=== PATIENT | female | born 1990 | race Hispanic/Latino ===

== ENCOUNTER 2019-04-24 15:47 | Outpatient (CLI) | payer OTHER ==
--- NOTE | 2019-04-24 16:05 | RAD ---
XR Abdomen 1 View/KUB History: Generalized abdominal pain Comparison: None. 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 Evaluation for free air is limited without an upright exam. No dilated air-filled loops of large or small bowel. Phleboliths in the left hemipelvis. No abnormal calcifications project over the renal shadows. Impression: 1. No acute abnormality within the pelvis. 2. Left IIb lumbosacral transitional vertebra.
== END 2019-04-24 15:48 | disposition home or self-care (01) ==
LOC: NAV RAD 15:47
DX: R10.84 Generalized abdominal pain (principal)
CPT/HCPCS: 74018